=== PATIENT | female | born 1995 | race Caucasian/White ===

== ENCOUNTER 2023-03-21 09:15 | Outpatient (AMB) | payer BC, SELFPAY ==
--- NOTE | 2023-03-21 09:19 | A.OFFVIS_ITS ---
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 Patient state loss of sensation on my right foot forf about a year and half now Allergies No Known Allergies Allergy (Verified 03/21/23 09:23) Medication List - Last Reconciled 03/21/23 by Adeline Balderrama MD buspirone 15 mg PO BID levonorgestrel-ethinyl estrad 0.1-20 mg-mcg (Aviane) 1 tab PO DAILY levothyroxine 88 mcg PO DAILY melatonin mg PO vitamins B1 B6 B12 tabs PO HPI HPI Comments History of Present Illness Details 27y/o female comes for second opinion. She was seen by Dr. Mercedes in Jul 2022 for right foot numbness .she reports loss of sensation in her right foot when she was pushing the gas pedal for 18 mths now. Now she also feels her right foot foot is weak. she denies any cramping or dystonia. No back pain or neck pain. while driving sometime she feels like her right leg is tight.The abnormal sensation or loss of sensation is usually when she is driving. she denies any parasthesias , no burning pain. No change in skin color No gait issues. [facility] Medical History Back pain Hypothyroidism Numbness of right foot Panic disorder Family History Mother Mental disorder Father Diabetes Anxiety Maternal Grandfather Myocardial infarction Maternal Grandmother Diabetes Social History Alcohol intake: never Patient Tobacco Use Status: Never used Tobacco Review of Systems Const Reports no additional complaints and Reports weakness Eyes Reports no additional complaints ENT Reports no additional complaints Card Reports no additional complaints Musc Reports back pain and Reports numbness Neuro Reports numbness and Reports weakness Psych Reports anxiety Physical Exam Vital Signs: Last Vital Signs Pulse 81 03/21/23 09:22 BP 110/82 03/21/23 09:22 Pulse Ox 99 03/21/23 09:22 Oxygen Delivery Method Room Air 03/21/23 09:22 BMI result Body Mass Index 26.6 Const General: cooperative, healthy appearing, no acute distress and anxious Nutritional Appearance: average body habitus Orientation/consciousness: patient oriented x3 Eyes Pupils: Equal, round and reactive pupils present Neuro Other: tight TMJs mara Mallampatti grade 4 General: patient oriented x3, gait normal, tone normal, moves all extremities a nd no focal motor deficits Cranial nerves: Yes Equal, round and reactive pupils present, Yes Bilaterally intact EOM present, Yes Nystagmus not present, Yes Normal facial strength present, Yes Midline tongue present, Yes Symmetric palate elevation present and Yes Ability to bilaterally elevate shoulders present Cognition (Neuro): normal cognition Gait exam (Neuro): Normal gait present Motor exam (neuro): 5/5 motor strength present throughout and Normal motor muscle tone present throughout Deep tendon reflexes (DTR's): Right triceps reflex intensity grade: 2+, Left triceps reflex intensity grade: 2+, Rt Biceps (C5, C6): 2+, Left biceps reflex intensity grade: 2+, Right brachioradialis reflex intensity grade: 2+, Left brachioradialis reflex intensity grade: 2+, Right patellar reflex intensity grade: 3+ and Left patellar reflex intensity grade: 3+ Coordination: [id number] test normal Assessment & Plan Assessment & Plan (1) Numbness of right foot: Code(s): R20.0 - Anesthesia of skin (2) Back pain: Code(s): M54.9 - Dorsalgia, unspecified Plan X ray LS spine to evaluate for any skeletal issues EMG NCS right foot Orders: Orders XR lumbar spine 2-3V Today M54.9 - Dorsalgia, unspecified NE electromyogram (EMG) Today R20.0 - Anesthesia of skin Coding Level of Care Code New Pt Level 4 (64609) Diagnoses Numbness of right foot R20.0 Back pain M54.9
[2023-03-21 09:22] VITALS: BP 110/82; PULSE 81; O2SAT 99; BMI 26.6
== END 2023-03-21 09:51 | disposition home or self-care (01) ==
LOC: HO.HSMS 09:15
PROVIDERS: PCP Family Medicine; Visit Provider Psychiatry & Neurology Neurology
DX: R20.0 Anesthesia of skin (principal); M54.9 Dorsalgia, unspecified
CPT/HCPCS: 99204

== ENCOUNTER 2023-03-21 09:15 | Outpatient (REF) | payer BC, SELFPAY ==
--- NOTE | ~2023-03-21 | XR_ITS ---
EXAMINATION: XR LUMBOSACRAL SPINE CLINICAL INFORMATION: Pain COMPARISON: None available. TECHNIQUE: Three views of the lumbosacral spine. FINDINGS: The vertebral bodies and posterior elements are notable for minor endplate spurring.. The disc spaces are preserved and the vertebral alignment is normal. The paraspinal soft tissues are normal. XR/XR lumbar spine 2-3V IMPRESSION: No acute findings. Minor endplate spurring.
== END 2023-03-21 09:16 | disposition home or self-care (01) ==
LOC: HO.XRAY 09:15
PROVIDERS: PCP Family Medicine; Visit Provider Psychiatry & Neurology Neurology
DX: M54.9 Dorsalgia, unspecified (principal); R20.0 Anesthesia of skin; Z79.899 Other long term (current) drug therapy
CPT/HCPCS: 72100

== ENCOUNTER 2023-04-11 09:36 | Outpatient (REF) | payer BC, SELFPAY ==
--- NOTE | 2023-04-11 09:38 | EMG_ITS ---
Please see scanned EMG / Nerve Conduction Report. MTDD
== END 2023-04-11 09:37 | disposition home or self-care (01) ==
LOC: HO.NEURO 09:36
PROVIDERS: PCP Family Medicine; Visit Provider Psychiatry & Neurology Neurology
DX: R20.0 Anesthesia of skin (principal)
CPT/HCPCS: 95860; 95885; 95907; 95910

== ENCOUNTER 2023-06-04 10:22 | Outpatient (AMB) | payer BC, SELFPAY ==
--- NOTE | 2023-06-04 10:23 | MHC.OFFVIS ---
Intake Vital Signs 06/04/23 10:25 Height 5 ft 5 in Weight 162 lb 8 oz BMI 27.0 BP 136/88 Blood Pressure Location Rt brachial Position Sitting Pulse 85 Pulse Source Pulse Oximeter Pulse Oximetry (%) 95 Oxygen Delivery Method Room Air Intake Visit Reasons: 2m follow up joint sensation-confirmed Intake Note: Pt presents to the office today for a 2 month follow up joint sensation. Pt states she feels about the same as before. Pt states the only difference is that every so often she will get sharp pains in the bottom of her feet. Pt states she gets numbness in her feet almost all the time. Pt states she was prescribed naproxen from her PCP for her pain. Pt states the naproxen is giving her minimal relief. Allergies No Known Allergies Allergy (Verified 06/04/23 10:26) Medication List - Last Reconciled 06/04/23 by Adeline Balderrama MD buspirone 15 mg PO BID gabapentin 100 mg PO BID levonorgestrel-ethinyl estrad 0.1-20 mg-mcg (Aviane) 1 tab PO DAILY levothyroxine 88 mcg PO DAILY melatonin mg PO naproxen 500 mg PO Q12H PRN vitamins B1 B6 B12 tabs PO HPI HPI Comments History of Present Illness Details 27y/o female comes for follow up She was seen by Dr. Mercedes in Jul 2022 for right foot numbness .she reports loss of sensation in her right foot when she was pushing the gas pedal for 18 mths now. Now she also feels her right foot foot is weak. she denies any cramping or dystonia. EMG was normal , Xray showed mild spurring. No back pain or neck pain. while driving sometime she feels like her right leg is tight.The abnormal sensation or loss of sensation is usually when she is driving. she denies any parasthesias , no burning pain. No change in skin color No gait issues. [facility] Medical History Panic disorder Hypothyroidism Numbness of right foot Back pain Family History Mother Mental disorder Father Diabetes Anxiety Maternal Grandfather Myocardial infarction Maternal Grandmother Diabetes Social History Alcohol intake: never Patient Tobacco Use Status: Never used Tobacco Physical Exam Vital Signs: Last Vital Signs Pulse 85 06/04/23 10:25 BP 136/88 06/04/23 10:25 Pulse Ox 95 06/04/23 10:25 Oxygen Delivery Method Room Air 06/04/23 10:25 BMI result Body Mass Index 27.0 Const General: cooperative, healthy appearing, no acute distress and anxious Nutritional Appearance: average body habitus Orientation/consciousness: patient oriented x3 Eyes Pupils: Equal, round and reactive pupils present Neuro Other: tight TMJs mara Mallampatti grade 4 General: patient oriented x3, gait normal, tone normal, moves all extremities and no focal motor deficits Cranial nerves: Yes Equal, round and reactive pupils present, Yes Bilaterally intact EOM present, Yes Nystagmus not present, Yes Normal facial strength present, Yes Midline tongue present, Yes Symmetric palate elevation present and Yes Ability to bilaterally elevate shoulders present Cognition (Neuro): normal cognition Gait exam (Neuro): Normal gait present Motor exam (neuro): 5/5 motor strength present throughout and Normal motor muscle tone present throughout Coordination: [id number] test normal Assessment & Plan Assessment & Plan (1) Numbness of right foot: Comment: ? tarsal tunnel Code(s): R20.0 - Anesthesia of skin (2) Back pain: Code(s): M54.9 - Dorsalgia, unspecified Plan I will trial her on gabapentin 100mg bid . PT - declines Medications: New gabapentin 100 mg PO BID 60 caps 3RF Coding Level of Care Code Est Pt Level 4 (95075) Diagnoses Numbness of right foot R20.0 Back pain M54.9
[2023-06-04 10:25] VITALS: BP 136/88; PULSE 85; O2SAT 95; BMI 27.0
== END 2023-06-04 10:38 | disposition home or self-care (01) ==
PROVIDERS: PCP Family Medicine; Visit Provider Psychiatry & Neurology Neurology
DX: R20.0 Anesthesia of skin (principal); M54.9 Dorsalgia, unspecified
CPT/HCPCS: 99214

== ENCOUNTER → 2023-06-04 10:22 | Outpatient (BNVA) | payer BC, SELFPAY | PROVIDERS: PCP Family Medicine; Visit Provider Psychiatry & Neurology Neurology | DX: M54.9 Dorsalgia, unspecified (principal); R20.0 Anesthesia of skin ==

== ENCOUNTER 2023-09-18 07:31 | Outpatient (AMB) | payer BC, SELFPAY ==
--- NOTE | 2023-09-18 07:41 | MHC.OFFVIS ---
Intake Vital Signs 09/18/23 07:42 Height 5 ft 5 in BP 122/80 Blood Pressure Location Rt brachial Position Sitting Pulse 83 Pulse Source Pulse Oximeter Pulse Oximetry (%) 99 Oxygen Delivery Method Room Air Intake Visit Reasons: Follow up - Joint sensation - Confirmed Intake Note: Patient presents for follow up. no issues or concerns today. Allergies No Known Allergies Allergy (Verified 09/18/23 07:43) Medication List - Last Reconciled 09/18/23 by Adeline Balderrama MD buspirone 15 mg PO BID gabapentin 300 mg (3 x 100 mg) PO BID levonorgestrel-ethinyl estrad 0.1-20 mg-mcg (Aviane) 1 tab PO DAILY levothyroxine 88 mcg PO DAILY melatonin mg PO naproxen 500 mg PO Q12H PRN vitamins B1 B6 B12 tabs PO HPI HPI Comments History of Present Illness Details 27y/o female comes for follow up . Her back pain is better . she still has numbness, tingling in her right foot intermittently - plantar surface- near the arch . She was seen by Dr. Mercedes in Jul 2022 for right foot numbness .she reports loss of sensation in her right foot when she was pushing the gas pedal for 18 mths now. Now she also feels her right foot foot is weak. EMG was normal , Xray showed mild spurring. No back pain or neck pain. while driving sometime she feels like her right leg is tight and cramps up.she moves around and it helps.The abnormal sensation or loss of sensation is usually when she is driving. No change in skin color No gait issues. [facility] Medical History (Updated 09/18/23 @ 07:56 by Adelien Balderrama MD) Muscle cramp Panic disorder Hypothyroidism Numbness of right foot Back pain Family History Mother Mental disorder Father Diabetes Anxiety Maternal Grandfather Myocardial infarction Maternal Grandmother Diabetes Social History Alcohol intake: never Patient Tobacco Use Status: Never used Tobacco Physical Exam Vital Signs: Last Vital Signs Pulse 83 09/18/23 07:42 BP 122/80 09/18/23 07:42 Pulse Ox 99 09/18/23 07:42 Oxygen Delivery Method Room Air 09/18/23 07:42 Const General: cooperative, healthy appearing, no acute distress and anxious Nutritional Appearance: average body habitus Orientation/consciousness: patient oriented x3 Eyes Pupils: Equal, round and reactive pupils present Neuro Other: tight TMJs mara Mallampatti grade 4 Good toe walking heel walking General: patient oriented x3, gait normal, tone normal, moves all extremities and no focal motor deficits Cranial nerves: Yes Equal, round and reactive pupils present, Yes Bilaterally intact EOM present, Yes Nystagmus not present, Yes Normal facial strength present, Yes Midline tongue present, Yes Symmetric palate elevation present and Yes Ability to bilaterally elevate shoulders present Cognition (Neuro): normal cognition Gait exam (Neuro): Normal gait present Motor exam (neuro): 5/5 motor strength present throughout and Normal motor muscle tone present throughout Coordination: [id number] test normal Assessment & Plan Assessment & Plan (1) Numbness of right foot: Comment: ? tarsal tunnel Code(s): R20.0 - Anesthesia of skin (2) Muscle cramp: Comment: right foot at rest Code(s): R25.2 - Cramp and spasm Plan I will increase her on gabapentin 300mg bid . will consider adding a muscle relaxer. Medications: Changed From gabapentin 200 mg (2 x 100 mg) PO BID 120 caps 6RF To gabapentin 300 mg (3 x 100 mg) PO BID 180 caps 6RF Coding Level of Care Code Est Pt Level 4 (66683) Diagnoses Numbness of right foot R20.0 Muscle cramp R25.2
[2023-09-18 07:42] VITALS: BP 122/80; PULSE 83; O2SAT 99
== END 2023-09-18 08:02 | disposition home or self-care (01) ==
PROVIDERS: PCP Family Medicine; Visit Provider Psychiatry & Neurology Neurology
DX: R20.0 Anesthesia of skin (principal); R25.2 Cramp and spasm
CPT/HCPCS: 99214

== ENCOUNTER → 2023-09-18 07:31 | Outpatient (BNVA) | payer BC, SELFPAY | PROVIDERS: PCP Family Medicine; Visit Provider Psychiatry & Neurology Neurology ==

== ENCOUNTER 2023-12-18 14:27 | Outpatient (AMB) | payer MEDICAID, SELFPAY ==
--- NOTE | 2023-12-18 14:33 | MHC.OFFVIS ---
Intake Vital Signs 12/18/23 14:35 Height 5 ft 5 in Weight 160 lb BMI 26.6 BP 112/70 Blood Pressure Location Rt brachial Position Sitting Respiration 16 Pulse 73 Pulse Source Pulse Oximeter Pulse Oximetry (%) 100 Oxygen Delivery Method Room Air Intake Visit Reasons: 3M follow up-Unable to lvm Intake Note: Pt presents for 3 month follow up for muscle cramps. 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 she stopped gabapentin after 2 months -feels her symptoms have decreased significantly but still has an uncomfortable sensation in her right foot she tried cyclobenzaprine and it did not help. Her back pain is better . she still has numbness in her right foot intermittently - plantar surface- near the arch . No tingling She was seen by Dr. Mercedes in Jul 2022 for right foot numbness .she reports loss of sensation in her right foot when she was pushing the gas pedal for 18 mths now. Now she also feels her right foot foot is weak. EMG was normal , Xray showed mild spurring. No back pain or neck pain. Cramps are less frequent. No change in skin color No gait issues. [facility] Medical History Muscle cramp Panic disorder Hypothyroidism Numbness of right foot Back pain Family History Mother Mental disorder Father Diabetes Anxiety Maternal Grandfather Myocardial infarction Maternal Grandmother Diabetes Social History Alcohol intake: never Patient Tobacco Use Status: Never used Tobacco Physical Exam Vital Signs: Last Vital Signs Pulse 73 12/18/23 14:35 Resp 16 12/18/23 14:35 BP 112/70 04/09/24 14:35 Pulse Ox 100 12/18/23 14:35 Oxygen Delivery Method Room Air 12/18/23 14:35 BMI result Body Mass Index 26.6 Const General: cooperative, healthy appearing, no acute distress and anxious Nutritional Appearance: average body habitus Orientation/consciousness: patient oriented x3 Eyes Pupils: Equal, round and reactive pupils present Neuro Other: tight TMJs mara Mallampatti grade 4 Good toe walking heel walking General: patient oriented x3, gait normal, tone normal, moves all extremities and no focal motor deficits Cranial nerves: Yes Equal, round and reactive pupils present, Yes Bilaterally intact EOM present, Yes Nystagmus not present, Yes Normal facial strength present, Yes Midline tongue present, Yes Symmetric palate elevation present and Yes Ability to bilaterally elevate shoulders present Cognition (Neuro): normal cognition Gait exam (Neuro): Normal gait present Motor exam (neuro): 5/5 motor strength present throughout and Normal motor muscle tone present throughout Coordination: [id number] test normal Assessment & Plan Assessment & Plan (1) Numbness of right foot: Comment: ? tarsal tunnel Code(s): R20.0 - Anesthesia of skin (2) Muscle cramp: Comment: right foot at rest Code(s): R25.2 - Cramp and spasm Plan I will trial her on magnesium oxide 400mg qhs continue daily massages Medications: New magnesium oxide 400 mg PO BEDTIME 30 tabs 6RF Coding Level of Care Code Est Pt Level 4 (44353) Diagnoses Numbness of right foot R20.0 Muscle cramp R25.2
[2023-12-18 14:35] VITALS: BP 112/70; PULSE 73; RESP 16; O2SAT 100; BMI 26.6
== END 2023-12-18 14:58 | disposition home or self-care (01) ==
PROVIDERS: PCP Family Medicine; Visit Provider Psychiatry & Neurology Neurology
DX: R20.0 Anesthesia of skin (principal); R25.2 Cramp and spasm
CPT/HCPCS: 99214

== ENCOUNTER → 2023-12-18 14:27 | Outpatient (BNVA) | payer MEDICAID, SELFPAY | PROVIDERS: PCP Family Medicine; Visit Provider Psychiatry & Neurology Neurology | DX: R20.0 Anesthesia of skin (principal); R25.2 Cramp and spasm | CPT/HCPCS: 99212 ==

== ENCOUNTER 2024-06-17 14:30 | Outpatient (AMB) | payer MEDICAID, SELFPAY ==
--- NOTE | 2024-06-17 14:32 | MHC.OFFVIS ---
Vital Signs 06/17/24 14:36 Height 5 ft 5 in Weight 162 lb 8 oz BMI 27.0 BP 118/78 Blood Pressure Location Lt brachial Position Sitting Pulse 77 Pulse Source Pulse Oximeter Pulse Oximetry (%) 89 L Oxygen Delivery Method Room Air Intake Visit Reasons: 6 mon follow up Intake Note: Patient presents for a 6 mon follow up. 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 Her leg cramps have resolved but still has numbness in her right foot plantar surface. she had a repeat EMG last at [facility]. Her back pain is better . She was seen by Dr. Mercedes in Jul 2022 for right foot numbness .she reports loss of sensation in her right foot when she was pushing the gas pedal for 18 mths now. Now she also feels her right foot foot is weak. EMG was normal , Xray showed mild spurring. No back pain or neck pain. Cramps are less frequent. No change in skin color No gait issues. [facility] Medical History Muscle cramp Panic disorder Hypothyroidism Numbness of right foot Back pain Family History Mother Mental disorder Father Diabetes Anxiety Maternal Grandfather Myocardial infarction Maternal Grandmother Diabetes Social History Alcohol intake: never Patient Tobacco Use Status: Never used Tobacco Physical Exam Vital Signs: Last Vital Signs Pulse 77 06/17/24 14:36 BP 118/78 06/17/24 14:36 Pulse Ox 89 L 06/17/24 14:36 Oxygen Delivery Method Room Air 06/17/24 14:36 BMI result Body Mass Index 27.0 Const General: cooperative, healthy appearing, no acute distress and anxious Nutritional Appearance: average body habitus Orientation/consciousness: patient oriented x3 Eyes Pupils: Equal, round and reactive pupils present Neuro Other: tight TMJs mara Mallampatti grade 4 Good toe walking heel walking General: patient oriented x3, gait normal, tone normal, moves all extremities and no focal motor deficits Cranial nerves: Yes Equal, round and reactive pupils present, Yes Bilaterally intact EOM present, Yes Nystagmus not present, Yes Normal facial strength present, Yes Midline tongue present, Yes Symmetric palate elevation present and Yes Ability to bilaterally elevate shoulders present Cognition (Neuro): normal cognition Gait exam (Neuro): Normal gait present Motor exam (neuro): 5/5 motor strength present throughout and Normal motor muscle tone present throughout Coordination: [id number] test normal Assessment & Plan Assessment & Plan (1) Numbness of right foot: Comment: ? tarsal tunnel Code(s): R20.0 - Anesthesia of skin Category: Medical (2) Muscle cramp: Comment: right foot at rest Code(s): R25.2 - Cramp and spasm Category: Medical Plan Continue magnesium oxide 400mg qhs continue daily massages F/u with [facility] Coding Level of Care Code Est Pt Level 4 (14040) Diagnoses Numbness of right foot R20.0 Muscle cramp R25.2
[2024-06-17 14:36] VITALS: BP 118/78; PULSE 77; O2SAT 89; BMI 27.0
== END 2024-06-17 15:06 | disposition home or self-care (01) ==
PROVIDERS: PCP Family Medicine; Visit Provider Psychiatry & Neurology Neurology
DX: R20.0 Anesthesia of skin (principal); R25.2 Cramp and spasm
CPT/HCPCS: 99214

== ENCOUNTER → 2024-06-17 14:30 | Outpatient (BNVA) | payer MEDICAID, SELFPAY | PROVIDERS: PCP Family Medicine; Visit Provider Psychiatry & Neurology Neurology | DX: R20.0 Anesthesia of skin (principal); R25.2 Cramp and spasm | CPT/HCPCS: 99212 ==